=== PATIENT | female | born 1965 | race Caucasian/White ===

== ENCOUNTER 2017-06-09 12:26 | Inpatient (IN) | payer BC ==
[2017-06-09] MEDS ORDERED: Adacel (T-DAP) 0.5 ML VIAL ONE (13:32)
[2017-06-09] MEDS ORDERED: CEFAZOLIN 1 GM in Sodium Chloride 0.9% 100 ML IVPB SCH (13:45)
[2017-06-09] MEDS ORDERED: CEFAZOLIN 1 GM, Syringe 2.5 ML in Sterile Water 7.5 ML SLOW IVP SCH (13:45)
[2017-06-09] MEDS ORDERED: Ondansetron ODT 4 MG TAB PO PRN (13:48)
[2017-06-09] MEDS ORDERED: Fentanyl 100 MCG/2 ML VIAL SLOW IVP PRN (13:48)
--- NOTE | 2017-06-09 14:17 | HP ---
CHIEF COMPLAINT: Left arm pain. HISTORY OF PRESENT ILLNESS: Ms. Hilliard is a 51-year-old female who has fallen today. She landed on her left outstretched arm. She sustained immediate pain in the arm and deformity. She was seen in the [facility] where distal radius and ulnar fracture was identified. She was placed in a temporary splint and transferred for further treatment. She is now on the [facility] Emergency Department. She is comfortable at rest. No other injury. REVIEW OF SYSTEMS: Positive for left wrist pain. PAST SURGICAL HISTORY: Negative. PAST MEDICAL HISTORY: Hypertension, depression, and coronary artery disease. PSYCHIATRIC HISTORY: Depression. SOCIAL HISTORY: The patient denies alcohol use, drug use or tobacco use. ALLERGIES: No known drug allergies. MEDICATIONS: The patient takes metoprolol, amlodipine, lisinopril, fluoxetine, and Lasix. PHYSICAL EXAMINATION: GENERAL: She is alert, sitting upright in no apparent distress. HEENT: Normocephalic, atraumatic. RESPIRATORY: Breathing comfortably. ABDOMEN: Soft, nontender, nondistended. MUSCULOSKELETAL: The patient's left wrist has obvious deformity. She has palpable pulse. Sensatio n intact in the hand. She is able to flex and extend the digits. Two second capillary refill. IMAGES: X-rays were reviewed, which demonstrate a distal radius and ulna fracture with radial displ acement and extension. IMPRESSION: Ms. Hilliard is a 51-year-old female status post fall with a left distal radius and ul mike fracture. PLAN: At this point, the patient will be splinted in the emergency department. She will be added f or surgical schedule tomorrow for open reduction and internal fixation of the distal radius. She wi ll be n.p.o. at midnight. She will have adequate pain control. She will have DVT prophylaxis. All questions have been answered.
[2017-06-09] MEDS ORDERED: Fentanyl 100 MCG/2 ML VIAL ONE (14:32)
--- NOTE | 2017-06-09 15:06 | RAD ---
FRONTAL AND LATERAL IMAGING OF LEFT FOREARM: Date: 06/09/17 Time: 1451 hours COMPARISON: 06/09/17 at 0957 hours. HISTORY: Fracture, status post reduction. FINDINGS: There is a transverse fracture involving the distal left ulnar shaft with 7.0 mm of lateral displace ment and mild impaction. There is minimal lateral angulation. The impaction angulation and displacem ent is mildly improved since the prior exam. There is a comminuted, impacted distal left radial frac ture which extends into the distal radial ulnar joint and the radiocarpal joint. The lateral examina tion demonstrates numerous fracture fragments displaced both anteriorly and posteriorly, primarily o riginating from the radius. There is significant soft tissue swelling. IMPRESSION: Comminuted, displaced, impacted intra-articular fracture of the distal left radius. There is an asso ciated distal left ulnar shaft fracture as well. POS: EDUARDO
[2017-06-09 17:23] VITALS: BMI 38.4
[2017-06-09] MEDS: traMADol HCl 50 MG TAB PO PRN ×2 (19:06→23:00)
[2017-06-09] MEDS: Ketorolac Tromethamine 30 MG/ML VIAL IVP PRN (19:07)
[2017-06-09] MEDS: Docusate 100 MG CAP PO SCH (20:47)
[2017-06-09] MEDS ORDERED: FLU VACC QS2017-18 36 mo. & older 0.5 ML SYRINGE IM ONE (21:00)
[2017-06-09] MEDS: Dextrose 5 % And 0.9 % NaCl 1,000 ML IV SCH (22:59)
[2017-06-10] MEDS ORDERED: CEFAZOLIN/Water 2 GM/20 ML SYRINGE SLOW IVP SCH (00:01)
[2017-06-10] MEDS: Ketorolac Tromethamine 30 MG/ML VIAL IVP PRN (02:35)
[2017-06-10] MEDS: traMADol HCl 50 MG TAB PO PRN ×2 (03:16→07:10)
[2017-06-10] MEDS ORDERED: Fentanyl 100 MCG/2 ML VIAL ONE ×2 (09:57→10:00)
[2017-06-10] MEDS ORDERED: Midazolam HCl 2 mg/2 ml Vial ONE (09:57)
[2017-06-10] MEDS ORDERED: CEFAZOLIN/Water 2 GM/20 ML SYRINGE ONE (10:26)
[2017-06-10] MEDS ORDERED: Ropivacaine 0.2% 550 ML 550 ML NERVE BLCK SCH (10:32)
[2017-06-10] MEDS ORDERED: Promethazine HCl 25 MG/ML VIAL IM PRN ×2 (10:32→12:46)
[2017-06-10] MEDS ORDERED: HYDROcodone/Acetaminophen 5/325 mg Tablet PO PRN ×2 (10:32)
[2017-06-10] MEDS ORDERED: traMADol HCl 50 MG TAB PO PRN ×2 (10:32)
[2017-06-10] MEDS ORDERED: Zolpidem Tartrate 5 MG TAB PO PRN (10:32)
[2017-06-10] MEDS ORDERED: Ketorolac Tromethamine 30 MG/ML VIAL IVP PRN (10:32)
[2017-06-10] MEDS ORDERED: Ondansetron HCl/PF 4 MG/2 ML Vial IVP PRN ×2 (10:32→12:46)
[2017-06-10] MEDS ORDERED: Fentanyl 100 MCG/2 ML VIAL IV PRN (10:33)
[2017-06-10] MEDS ORDERED: Glycopyrrolate 0.2 MG/ML 5 ML SYRINGE ONE (10:43)
[2017-06-10] MEDS ORDERED: Dexamethasone 20 MG/5 ML VIAL ONE (10:43)
[2017-06-10] MEDS ORDERED: Propofol 200 MG/20 ML VIAL ONE (10:43)
[2017-06-10] MEDS ORDERED: Ondansetron HCl/PF 4 MG/2 ML Vial ONE (10:43)
[2017-06-10] MEDS ORDERED: PHENYLEPHRINE-NS 100 MCG/ML 10 ML SYRINGE ONE (10:43)
[2017-06-10] MEDS ORDERED: Lidocaine 1% PF 5 ML VIAL ONE (10:43)
--- NOTE | 2017-06-10 11:55 | OP ---
DATE OF SERVICE: 06/10/2017 OPERATION: Open reduction and internal fixation of left open distal radius and ulna fracture. PREOPERATIVE DIAGNOSIS: Open left distal radius and ulna fracture. SURGEON: Parker Martinez M.D. PRODUCTION SUPPORT SPECIALIST: Dick Jensen PA-C. COMPLICATIONS: None. ESTIMATED BLOOD LOSS: Minimal. INDICATIONS: Ms. Hilliard is a 51-year-old female who fell. She sustained a fracture of the dista l radius and ulna. She was indicated for open reduction and internal fixation of the fracture to re store anatomic alignment and promote healing. Risks have been reviewed in detail. She has elected to proceed with the operation. DESCRIPTION OF PROCEDURE: Ms. Hilliard was identified in the preoperative holding area. Her corre ct extremity was marked. She was carried to the operating room. She was positioned supine. Genera l anesthesia was induced. A multidisciplinary timeout was performed. The left upper extremity was prepped and draped in sterile fashion. We began the procedure after inflation of the tourniquet. We made a volar approach to the distal ra dius. We dissected down through the subcutaneous tissues to the bony level. The fracture was ident ified. There was significant comminution and displacement. We irrigated the hematoma. We then red uced the fracture with longitudinal traction and flexion. We applied a [employer] 5-hole volar distal radius plate. We placed multiple proximal screws and multiple distal locking screws. Once we had a dequate fixation, again, we took x-ray images. We finished placement of all screws. At this point, we morcellized some of the comminuted bone into the cavity of the fracture. We assessed stability of the ulna. The ulna was stable and did not require fixation. At this point, we thoroughly irriga edmundo. We then closed the volar wrist wound with 2-0 Vicryl suture and nylon. We opened the patient' s small puncture wound laterally and thoroughly irrigated this with copious lavage. This was closed with nylon suture. A sterile dressing and a splint was placed. IMPLANTS: Synthes volar distal radius plate was used, 5 hole.
[2017-06-10] MEDS ORDERED: Promethazine HCl 25 MG/ML VIAL SLOW IVP PRN (12:46)
[2017-06-10] MEDS: Docusate 100 MG CAP PO SCH (13:39)
[2017-06-10] MEDS: Dextrose 5 % And 0.9 % NaCl 1,000 ML IV SCH (13:39)
--- NOTE | 2017-06-10 15:00 | RAD ---
LEFT WRIST TWO FLUOROSCOPIC VIEWS FROM THE OR: History: Internal fixation left wrist. FINDINGS/IMPRESSION: These views demonstrate plate and screw transfixing the distal radius. POS: EDUARDO
[2017-06-10 16:22] VITALS: BP 120/72; TEMP 97.5
[2017-06-10] MEDS ORDERED: Metoprolol Tartrate 50 MG TAB PO SCH (16:30)
[2017-06-10] MEDS ORDERED: Furosemide 40 MG TAB PO SCH (21:00)
[2017-06-11] MEDS ORDERED: Amlodipine 5 MG TAB PO SCH (09:00)
[2017-06-11] MEDS ORDERED: Metoprolol Tartrate 50 MG TAB PO SCH (09:00)
[2017-06-11] MEDS ORDERED: FLUoxetine HCl 20 MG CAP PO SCH (09:00)
[2017-06-11] MEDS ORDERED: Lisinopril 10 MG TAB PO SCH (09:00)
== END 2017-06-10 16:57 | disposition home or self-care (01) | DRG 512 ==
LOC: ERS 12:26 → SURG A 14:38
PROVIDERS: ADMIT Orthopaedic Surgery; ATTEND Orthopaedic Surgery
PROC: 0PSJXZZ Reposition Left Radius, External Approach (ICD-10-PCS; 2017-06-09)
PROC: 0PSJ04Z Reposition Left Radius with Internal Fixation Device, Open Approach (ICD-10-PCS; principal; 2017-06-10)
PROC: 3E0T3BZ Introduction of Anesthetic Agent into Peripheral Nerves and Plexi, Percutaneous Approach (ICD-10-PCS; 2017-06-10)
DX: S52.502B Unspecified fracture of the lower end of left radius, initial encounter for open fracture type I or II (principal); I10 Essential (primary) hypertension; W18.30XA Fall on same level, unspecified, initial encounter; I25.10 Atherosclerotic heart disease of native coronary artery without angina pectoris; F32.9 Major depressive disorder, single episode, unspecified; Z23 Encounter for immunization; Z96.653 Presence of artificial knee joint, bilateral; Z90.3 Acquired absence of stomach [part of]; S52.202B Unspecified fracture of shaft of left ulna, initial encounter for open fracture type I or II
CPT/HCPCS: 25660; 76001; 90715; 93005; 96374; 96375; A4216; A4306; C1713; G0390; J0690; J1100; J1885; J2001; J2250; J2405; J2704; J2795; J3010; J7050